=== PATIENT | female | born 1985 | race Caucasian/White ===

== ENCOUNTER 2020-01-01 14:57 | Emergency (ER) | payer BC, OTHER ==
[~2020-01-01] VITALS: Ht 172.7 cm; Wt 73.8 kg
[2020-01-01 15:00] VITALS: BP 132/79
[2020-01-01] MEDS ORDERED: PHENAZOPYRIDINE 200 MG TABLET ONE (15:30)
[2020-01-01] MEDS ORDERED: CEFDINIR 300 MG CAPSULE ONE (15:30)
[2020-01-01] MEDS ORDERED: CEFDINIR 300 MG CAPSULE PO ONE (15:30)
[2020-01-01] MEDS ORDERED: PHENAZOPYRIDINE 200 MG TABLET PO ONE (15:30)
[2020-01-01 16:09] LABS: CULTURE INDICATED? YES; MICROSCOPIC INDICATED
[2020-01-01 16:13] LABS: HCG UR SG > 1.030 (1.003-1.030)
== END 2020-01-01 16:54 | disposition home or self-care (01) ==
LOC: ED 16:03
DX: N30.00 Acute cystitis without hematuria (principal)
CPT/HCPCS: 81001; 81025; 87077; 87086; 87186; 99283

== ENCOUNTER 2020-01-16 19:58 | Emergency (ER) | payer SELFPAY ==
[~2020-01-16] VITALS: Ht 172.7 cm; Wt 74.0 kg
[2020-01-16 20:02] VITALS: BP 122/86
[2020-01-16] MEDS ORDERED: PROMETHAZINE 25 MG/ML, 1ML ONE (20:51)
[2020-01-16] MEDS ORDERED: PROMETHAZINE 25 MG/ML, 1ML IM ONE (21:00)
[2020-01-16 21:03] LABS: RAPID INFLUENZA A Negative (Negative); RAPID INFLUENZA B Negative (Negative)
== END 2020-01-16 21:39 | disposition home or self-care (01) ==
LOC: ED 21:30
DX: R11.2 Nausea with vomiting, unspecified (principal); R50.9 Fever, unspecified; F17.210 Nicotine dependence, cigarettes, uncomplicated; Z98.51 Tubal ligation status
CPT/HCPCS: 87400; 96372; 99283; J2550

== ENCOUNTER 2020-01-18 09:53 | Emergency (ER) | payer SELFPAY ==
[~2020-01-18] VITALS: Ht 172.7 cm; Wt 72.8 kg
[2020-01-18] MEDS ORDERED: ALBUTEROL/IPRATROPIUM 2.5MG/0.5MG, 3 ML NPPB ONE (10:30)
--- NOTE | 2020-01-18 10:45 | NUR ---
PT LAYNIG IN BED, VOMIT BAG WITH IN REACH, COOPERATIVE WITH VITAL SIGNS BUT MOANING FROM STOMACH PAIN. STATES MUSCLES ARE SORE FROM HAVING THROWN UP SO MUCH IN THE PAST 4 DAYS. AT BEDSIDE. WILL CONTINUE TO MONITOR.
--- NOTE | 2020-01-18 10:46 | NUR ---
lab called and will be having pt redrawn
[2020-01-18] MEDS ORDERED: ALBUTEROL/IPRATROPIUM 2.5MG/0.5MG, 3 ML ONE ×2 (10:51→12:20)
--- NOTE | 2020-01-18 11:10 | NUR ---
PT LAYING IN BED, LIGHTS OFF TO PROMOTE REST, RESPIRATIONS EVEN AND UNLABORED, NO SIGNS OF DISTRESS, CALL LIGHT WITHIN REACH.
[2020-01-18 11:11] VITALS: BP 140/75
[2020-01-18 11:15] LABS: BASOPHILS # (AUTO) 0.05 x10^3/uL (0-0.1); BASOPHILS % (AUTO) 1 % (0-1); EOSINOPHILS # (AUTO) 0.01 x10^3/uL (0-0.4); EOSINOPHILS % (AUTO) 0 % (1-7); LYMPHOCYTES % (AUTO) 17 % (22-44); MD NO; MEAN CORPUSCULAR HEMOGLOBIN 31.5 pg (27.0-34.8); MEAN CORPUSCULAR VOLUME 95.5 fL (80-100); MEAN PLATELET VOLUME 8.4 fL (7.4-10.4); MONOCYTES % (AUTO) 9 % (2-9); NEUTROPHILS # (AUTO) 7.78 x10^3/uL (1.8-6.8); NEUTROPHILS % (AUTO) 73 % (42-75); PLATELET COUNT 335 x10^3/uL (130-400); RED BLOOD COUNT 5.14 x10^6/uL (3.82-5.3); RED CELL DISTRIBUTION WIDTH 14.1 % (9.6-15.2)
[2020-01-18] MEDS ORDERED: SODIUM CHLORIDE 0.9% 1,000 ML IV ONE (11:16)
[2020-01-18 11:24] LABS: ALANINE AMINOTRANSFERASE 86 U/L (12-78); ALBUMIN 3.9 g/dL (3.4-5.0); ANION GAP 7 mmol/L (5-15); CALCIUM 8.9 mg/dL (8.5-10.1); CHLORIDE 103 mmol/L (98-107)
[2020-01-18 11:29] LABS: ALKALINE PHOSPHATASE 53 U/L (45-117); CREATININE 1.05 mg/dL (0.55-1.02)
[2020-01-18] MEDS ORDERED: ONDANSETRON 2MG/ML, 2ML ONE (11:29)
[2020-01-18] MEDS ORDERED: FAMOTIDINE 20 MG/2 ML ONE (11:29)
[2020-01-18] MEDS ORDERED: ONDANSETRON 2MG/ML, 2ML IVPush ONE (11:30)
[2020-01-18] MEDS ORDERED: SODIUM CHLORIDE FLUSH 10ML SYR IVF ONE (11:30)
[2020-01-18] MEDS ORDERED: FAMOTIDINE 20 MG/2 ML IV ONE (11:30)
[2020-01-18] MEDS ORDERED: SODIUM CHLORIDE 0.9% 1,000ML IVBOLUS ONE (11:30)
[2020-01-18 11:48] LABS: CULTURE INDICATED? YES; MICROSCOPIC INDICATED
--- NOTE | 2020-01-18 12:50 | NUR ---
PT LAYING IN BED, CONDITION UNCHANGED. WILL CONTINUE TO MONITOR.
[2020-01-18] MEDS ORDERED: PROMETHAZINE 25 MG/ML, 1ML ONE (13:00)
[2020-01-18] MEDS ORDERED: PROMETHAZINE 25 MG/ML, 1ML IM ONE (13:00)
== END 2020-01-18 14:08 | disposition left against medical advice (07) ==
LOC: ED 14:00
DX: R11.2 Nausea with vomiting, unspecified (principal); R10.84 Generalized abdominal pain; R00.0 Tachycardia, unspecified; F17.200 Nicotine dependence, unspecified, uncomplicated
CPT/HCPCS: 36415; 80053; 81001; 83690; 84703; 85025; 87077; 87086; 87186; 94640; 96361; 96372; 96374; 96375; 99284; J2405; J2550; J3490; J7030

== ENCOUNTER 2020-05-21 17:47 | Emergency (ER) | payer SELFPAY ==
[~2020-05-21] VITALS: Ht 172.7 cm; Wt 74.0 kg
--- NOTE | 2020-05-21 18:26 | NUR ---
Pt states waking uo with fever, chills, body aches and N/V
[2020-05-21] MEDS ORDERED: ONDANSETRON 2MG/ML, 2ML IVPush ONE (18:30)
[2020-05-21] MEDS ORDERED: SODIUM CHLORIDE 0.9% 1,000ML IVBOLUS ONE (18:30)
[2020-05-21] MEDS ORDERED: KETOROLAC 30 MG/1 ML IVPush ONE (18:30)
[2020-05-21] MEDS ORDERED: SODIUM CHLORIDE FLUSH 10ML SYR IVF ONE (18:30)
[2020-05-21] MEDS ORDERED: ONDANSETRON 2MG/ML, 2ML ONE (18:40)
[2020-05-21] MEDS ORDERED: KETOROLAC 30 MG/1 ML ONE (18:40)
[2020-05-21 18:41] LABS: MICROSCOPIC INDICATED
[2020-05-21 18:56] LABS: BASOPHILS # (AUTO) 0.04 x10^3/uL (0-0.1); BASOPHILS % (AUTO) 0 % (0-1); EOSINOPHILS # (AUTO) 0.08 x10^3/uL (0-0.4); EOSINOPHILS % (AUTO) 1 % (1-7); LYMPHOCYTES # (AUTO) 2.43 x10^3/uL (1-3.4); LYMPHOCYTES % (AUTO) 22 % (22-44); MD NO; MEAN CORPUSCULAR HEMOGLOBIN 31.6 pg (27.0-34.8); MEAN CORPUSCULAR HGB CONC 33.2 g/dL (32.4-35.8); MEAN CORPUSCULAR VOLUME 95.4 fL (80-100); MEAN PLATELET VOLUME 8.3 fL (7.4-10.4); MONOCYTES # (AUTO) 0.85 x10^3/uL (0.2-0.8); MONOCYTES % (AUTO) 8 % (2-9); NEUTROPHILS # (AUTO) 7.86 x10^3/uL (1.8-6.8); NEUTROPHILS % (AUTO) 70 % (42-75); PLATELET COUNT 379 x10^3/uL (130-400)
--- NOTE | 2020-05-21 18:59 | NUR ---
Pt resting, given Zofran, Toradol. Fluids infusing. UA, cultuires sent to lab.
[2020-05-21 19:02] LABS: ALANINE AMINOTRANSFERASE 103 U/L (12-78); ALBUMIN 3.9 g/dL (3.4-5.0); ANION GAP 7 mmol/L (5-15); CHLORIDE 107 mmol/L (98-107); CREATININE 0.79 mg/dL (0.55-1.02)
[2020-05-21 19:05] LABS: ALKALINE PHOSPHATASE 71 U/L (45-117)
--- NOTE | 2020-05-21 19:47 | NUR ---
Pt sleeping, no distress noted. VS updated.
--- NOTE | 2020-05-21 20:46 | NUR ---
Pt provided with fluid for PO challenge
--- NOTE | 2020-05-21 20:48 | NUR ---
Pt vomiting water almost immediately post PO challenge
[2020-05-21] MEDS ORDERED: PROCHLORPERAZINE 5 MG/ML, 2ML IVPush ONE (21:00)
[2020-05-21] MEDS ORDERED: PROCHLORPERAZINE 5 MG/ML, 2ML ONE (21:12)
--- NOTE | 2020-05-21 21:14 | NUR ---
Medicated for continued nausea
--- NOTE | 2020-05-21 21:40 | NUR ---
Pt states improvement after compazine.
--- NOTE | 2020-05-21 22:20 | NUR ---
assumed care of pt. report from Kulwinder CARTER. pt reports improvement of sx after medications. pt to be given ABX infusion. resting in position of comfort. no family at bedside
[2020-05-21] MEDS ORDERED: CEFTRIAXONE PMX 1GM/50ML 50 ML IV ONE (22:30)
--- NOTE | 2020-05-21 22:33 | NUR ---
Report provided to EMMA Coats
[2020-05-21] MEDS ORDERED: CEFTRIAXONE PMX 1GM/50ML 50 ML ONE (22:35)
--- NOTE | 2020-05-21 23:22 | NUR ---
ABX infusion completed. pt resting in position of comfort dozing intermittently. chart up for MD recheck
[2020-05-21 23:41] VITALS: BP 130/82
== END 2020-05-21 23:45 | disposition home or self-care (01) ==
LOC: ED 20:08
DX: N30.00 Acute cystitis without hematuria (principal); R11.2 Nausea with vomiting, unspecified
CPT/HCPCS: 36415; 80053; 81001; 81025; 83605; 83690; 84145; 85025; 87040; 87086; 96361; 96365; 96375; 99285; J0696; J0780; J1885; J2405; J7030

== ENCOUNTER 2020-06-03 19:31 | Emergency (ER) | payer OTHER ==
[~2020-06-03] VITALS: Ht 172.7 cm; Wt 74.0 kg
--- NOTE | 2020-06-03 19:42 | NUR ---
FIRST PT CONTACT: PT CAME IN TODAY DUE TO ABDOMINAL PAIN, NAUSEA AND VOMITTING. PT POINTS SUBSTERNAL WHEN ASKED PAIN LOCATION. SAYS ITS BEEN GOING ON FOR A FEW DAYS. STATES SHE WENT TO [facility] AND THEY TOLD HER IT WAS A STOMACH BUG, WAS DC'D FROM THERE YESTERDAY AM, 7/10 ABDOMINAL PAIN THAT FEELS LIKE CRAMPING. LAST BM YESTERDAY. PT APPEARS UNCOMFORTABLE. VSS. CALL LIGHT ON LAP. GIVEN WARM BLANKETS FOR COMFORT, WAITING FOR PROVIDER EVAL. PT PLACED ON BP/SPO2/ECG MONITORING. WCTM.
[2020-06-03] MEDS ORDERED: KETOROLAC 30 MG/1 ML ONE (20:18)
[2020-06-03] MEDS ORDERED: PROCHLORPERAZINE 5 MG/ML, 2ML ONE (20:18)
[2020-06-03] MEDS ORDERED: PROCHLORPERAZINE 5 MG/ML, 2ML IVPush ONE (20:30)
[2020-06-03] MEDS ORDERED: SODIUM CHLORIDE 0.9% 1,000ML IVBOLUS ONE (20:30)
[2020-06-03] MEDS ORDERED: KETOROLAC 30 MG/1 ML IVPush ONE (20:30)
[2020-06-03 21:14] LABS: BASOPHILS # (AUTO) 0.05 x10^3/uL (0-0.1); BASOPHILS % (AUTO) 0 % (0-1); EOSINOPHILS # (AUTO) 0.01 x10^3/uL (0-0.4); EOSINOPHILS % (AUTO) 0 % (1-7); LYMPHOCYTES # (AUTO) 1.87 x10^3/uL (1-3.4); LYMPHOCYTES % (AUTO) 19 % (22-44); MD NO; MEAN CORPUSCULAR HEMOGLOBIN 31.4 pg (27.0-34.8); MEAN CORPUSCULAR VOLUME 95.2 fL (80-100); MEAN PLATELET VOLUME 8.5 fL (7.4-10.4); MONOCYTES % (AUTO) 5 % (2-9); NEUTROPHILS # (AUTO) 7.71 x10^3/uL (1.8-6.8); NEUTROPHILS % (AUTO) 76 % (42-75); PLATELET COUNT 302 x10^3/uL (130-400); RED BLOOD COUNT 5.07 x10^6/uL (3.82-5.3); RED CELL DISTRIBUTION WIDTH 14.1 % (9.6-15.2)
--- NOTE | 2020-06-03 21:14 | NUR ---
ua sent to lab, pt medicated per jan. nad. no change in condition. wctm. waiting for lab results.
[2020-06-03 21:19] LABS: ALANINE AMINOTRANSFERASE 124 U/L (12-78); ALBUMIN 3.7 g/dL (3.4-5.0); ANION GAP 6 mmol/L (5-15); CALCIUM 8.7 mg/dL (8.5-10.1); CHLORIDE 107 mmol/L (98-107); CREATININE 0.65 mg/dL (0.55-1.02)
[2020-06-03 21:21] LABS: ALKALINE PHOSPHATASE 59 U/L (45-117); BILIRUBIN,TOTAL 0.8 mg/dL (0.2-1.0)
[2020-06-03 21:33] LABS: MICROSCOPIC INDICATED
--- NOTE | 2020-06-03 21:43 | NUR ---
RN TO BS TO UPDATE PT ON POC. PT NAD, REPORTS FEELING SLIGHTLY BETTER. WAITING FOR DC PAPERWORK. WCTM.
[2020-06-03 21:44] VITALS: BP 164/96
--- NOTE | 2020-06-03 21:58 | NUR ---
Patient given discharge instructions and they have confirmed that they understand the instructions. Patient ambulatory with steady gait. NAD, P/W/D. NO BELONGINGS LEFT IN ROOM AFTER DC. PT DENIES ADDITIONAL QUESTIONS AT THIS TIME.
== END 2020-06-03 22:07 | disposition home or self-care (01) ==
LOC: ED 19:45
DX: R10.12 Left upper quadrant pain (principal); R11.2 Nausea with vomiting, unspecified; N39.0 Urinary tract infection, site not specified; R11.15 Cyclical vomiting syndrome unrelated to migraine; F17.210 Nicotine dependence, cigarettes, uncomplicated
CPT/HCPCS: 36415; 80053; 81001; 83690; 85025; 87086; 93005; 96361; 96374; 96375; 99284; J0780; J1885; J7030